=== PATIENT | male | born 1950 | race Asian ===

== ENCOUNTER 2024-03-26 10:22 | Outpatient (REF) | payer OTHER, SELFPAY | END 2024-03-26 10:23 | disposition home or self-care (01) | LOC: HO.SH 10:22 | PROVIDERS: Visit Provider Physician Assistant Medical | DX: Z01.118 Encounter for examination of ears and hearing with other abnormal findings (principal); H90.3 Sensorineural hearing loss, bilateral | CPT/HCPCS: 92553; 92555 ==

== ENCOUNTER 2025-04-08 10:09 | Outpatient (AMB) | payer OTHER, SELFPAY ==
--- NOTE | 2025-04-08 10:34 | A.OFFPC_ITS ---
Vital Signs 04/08/25 10:48 Height 5 ft 1 in Weight 130 lb 8 oz BMI 24.7 BP 120/70 Blood Pressure Location Lt brachial Position Sitting Respiration 14 Pulse 91 Pulse Source Pulse Oximeter Temp 97.8 F Temp Source Oral Pulse Oximetry (%) 95 Oxygen Delivery Method Room Air Intake Visit Reasons: TIN POURER // Requesting a PE Intake Note: patient schedule to establish care with pcp Parquet Floor Layer'S Helper Required: Yes Parquet Floor Layer'S Helper Language: [facility] Parquet Floor Layer'S Helper Name: [id number] Information Interpreted: clinical only Clinical Laboratory Assistant: Present Accompanied by: Son Allergies No Known Allergies Allergy (Verified 04/08/25 10:39) Medication List - Last Reconciled 04/08/25 by Burke Gipson MD clobetasol 0.05% topical BID PRN cyanocobalamin (vitamin B-12) (Vitamin B-12) 1,000 mcg PO DAILY docusate sodium 100 mg PO BID PRN empagliflozin (Jardiance) 25 mg PO DAILY gabapentin 100 mg PO BID glipizide ER 10 mg PO BID lisinopril 5 mg PO DAILY metformin 1,000 mg PO BID omega 4-mdw-vkg-fish oil 60-90-500 mg 1 cap PO DAILY omeprazole 20 mg PO DAILY sertraline 50 mg PO DAILY simvastatin 20 mg PO BEDTIME Tobacco use date assessed: 04/08/25 Fall risk assessment: No Falls in past year Last assessed Fall Risk: 04/08/25 Dental Screening Dental Screen Date: 04/08/25 Did you have a dental visit in the last 12 months?: No Did you have a dental problem in the last 6 months where you did not have access to dental care?: No Was dental information given to patient?: Patient declined HPI TIN POURER // Requesting a PE HPI Details New Patient? ?? Prior PCP:? Last office visit/CPE:? [facility] in [place] Acute issue(s):? ?? PMHx:? Diabetes with Neuropathy, HTN, HLD, Depression. SurgHx:?None SocHx: Nonsmoker, No EtOH. [--- HPI Comments History of Present Illness Details Documentation assistance for Burke Gipson MD, was provided by Trev Alexandra,? Guide on 04/08/2025 at 11:03 AM EST. I, Dr. Gipson, have read, observed, and verified documentation. [facility] Social History (Updated 04/08/25 @ 10:45 by [facility] Mcdonough [facility] Housing: Apartment Patient Tobacco Use Status: Never used Tobacco e-Cigarette/Vaping Use: Never Used service: No Current occupational status: unemployed Cognitive needs: No Hearing needs: No Vision needs: No Questionnaire PHQ-9 Over the last 2 weeks, how often have you been bothered by any of the following problems? 1. Little interest or pleasure in doing things: not at all 2. Feeling down, depressed, or hopeless: not at all 3. Trouble falling or staying asleep, or sleeping too much: not at all 4. Feeling tired or having little energy: not at all 5. Poor appetite or overeating: not at all 6. Feeling bad about yourself - or that you are a failure or have let yourself or your family down: not at all 7. Trouble concentrating on things, such as reading the newspaper or watching television: not at all 8. Moving or speaking so slowly that other people could have noticed. Or the opposite - being so fidgety or restless that you have been moving around a lot more than usual: not at all 9. Thoughts that you would be better off or of hurting yourself in some wa y: not at all Total score: 0 Depression Screening Interpretation: Negative Depression Screening Done: Yes 18916 - PHQ-9 Billing: Yes Source: Developed by Drs. Jairon Brooks, Ana Bolnaos, Joe Bradley and colleagues, with an educational caroline from [employer]. Thrive Questionnaire Date Thrive assessed: 04/08/25 I am a: Patient What is your living situation today?: I have a steady place to live Within the past 12 months, did the food you bought not last and you didn't have the money to get more?: Never true Within the past 12 months, did you worry whether your food would run out before you got money to buy more?: Never true Do you have trouble paying for medicines?: No Do you have trouble getting transportation to medical appointments?: No Do you have trouble paying your heating and electricity bill?: No Do you have trouble taking care of your child, family member or friend?: No Do you have trouble with day-to-day activities such as bathing, preparing meals, shopping, managing finances, etc.?: No Are you currently unemployed and looking for a job?: No Are you interested in more education?: No Please select the resources that you would like help with: None Currently or been in a relationship where the following occur: No concerns reported THRIVE Score: 0 AUDIT C Alcohol Use Questionnaire (AUDIT-C) 1. How often do you have a drink containing alcohol?: Never 3. How often do you have six or more drinks on one occasion?: Never Total Score: 0 Score Reviewed/Action Taken: Yes BLACK-7 AMB Questionnaire BLACK-7 Date BLACK - 7 assessed: 04/08/25 Feeling nervous, anxious, or on edge: 0 = Not at all Not being able to stop or control worryin = Not at all Worrying too much about different things: 0 = Not at all Trouble relaxin = Not at all Being so restless that it is hard to sit still: 0 = Not at all Becoming easily annoyed or irritable: 0 = Not at all Feeling afraid as if something awful might happen: 0 = Not at all Total BLACK-7 score (0-4 normal; 5-9 mild; 10-14 moderate; 15-21 severe): 0 Source: Developed by Drs. Jairon Brooks, Ana Bolanos, Joe Bradley and colleagues, with an educational caroline from [employer]. BLACK-7 Assessment Billing BLACK-7 Assessment Tool: BLACK-7 Assessment 04125 Review of Systems Const Denies chills, Denies fatigue, Denies fever(s), Denies headache(s) and Denies weakness ENT Denies dizziness and Denies headache(s) Card Denies chest pain, Denies lightheadedness, Denies dyspnea and Denies other (Palpitations) Resp Denies cough, Denies dyspnea, Denies wheezing and Denies other ( shortness of breath) Musc Denies numbness and Denies tingling Neuro Denies dizziness, Denies headache(s), Denies numbness, Denies tingling, Denies paresthesias and Denies weakness Psych Denies anxiety and Denies depression Endo Denies fatigue Aller/Immun Denies wheezing Physical exam (Primary Care) Vital Signs: Last Vital Signs Temp 97.8 F 04/08/25 10:48 Pulse 91 04/08/25 10:48 Resp 14 04/08/25 10:48 BP 120/70 04/08/25 10:48 Pulse Ox 95 04/08/25 10:48 Oxygen Delivery Method Room Air 04/08/25 10:48 BMI result Body Mass Index 24.7 Tobacco/Smoking Status: Tobacco use Status Tobacco use date assessed 04/08/25 04/08/25 10:43 Patient Tobacco Use Status Never used Tobacco 04/08/25 10:45 e-Cigarette/Vaping Use Never Used 04/08/25 10:45 PHQ-9: PHQ-9 Score PHQ-9: Total score 0 04/08/25 10:51 Depression Screening Interpretation: Negative Thrive Assessment: Date of Thrive Assessment Date Thrive assessed 04/08/25 04/08/25 10:51 Currently or been in a relationship where the following occur: No concerns reported Const General: no acute distress and well developed Nutritional Appearance: well nourished Orientation/consciousness: patient oriented x3 HENMT Head: Yes normocephalic and Yes atraumatic Eyes General: appearance normal, both eyes and all related structures Pupils: Equal, round and reactive pupils present EOM: EOMs intact bilaterally Resp Effort & Inspection: normal respiratory effort Auscultation: clear to auscultation bilaterally Cardio Rate: regular rate Rhythm: regular rhythm Heart sounds: S1 normal heart sound present, S2 normal heart sound present, no gallops, no murmurs and no rubs Neuro General: patient oriented x3 and gait normal Cranial nerves: Yes Equal, round and reactive pupils present Psych Affect: normal affect Coding Level of Care Code New Pt Level 3 (48490) Diagnoses Diabetes mellitus with neuropathy E11.40 Hyperlipidemia E78.5 Hypertension I10 Laboratory exam ordered as part of routine general medical examination Z00.00 Depression F32.A Additional Codes BLACK-7 Assessment Billing - BLACK-7 Assessment Tool: BLACK-7 Assessment 65488 ([id number]) PHQ-9 - 01687 - PHQ-9 Billing: Yes ([id number]) Assessment & Plan Assessment & Plan (1) Diabetes mellitus with neuropathy: Code(s): E11.40 - Type 2 diabetes mellitus with diabetic neuropathy, unspecified Category: Medical Plan: Currently taking glipizide, metformin and Jardiance. Will check labs including fasting blood sugar and A1c (2) Hyperlipidemia: Code(s): E78.5 - Hyperlipidemia, unspecified Category: Medical Plan: Patient is taking simvastatin Will check lipids (3) Hypertension: Code(s): I10 - Essential (primary) hypertension Category: Medical Plan: Patient is taking lisinopril. Blood pressure 120/70 is good control. Goal is less than 140/90 Continue current medication (4) Laboratory exam ordered as part of routine general medical examination: Code(s): Z00.00 - Encounter for general adult medical examination without abnormal findings Category: Medical Plan: Check labs (5) Depression: Code(s): F32.A - Depression, unspecified Category: Medical Plan: Patient takes sertraline Stable Will continue current medication Orders: Orders Hemoglobin A1c Today R73.01 - Impaired fasting glucose Comprehensive [place]. Panel Fast Today Z00.00 - Encounter for general adult medical examination without abnormal findings Prostate Specific Antigen Scr Today Z12.5 - Encounter for screening for malignant neoplasm of prostate TSH reflex Free T4 Today Z00.00 - Encounter for general adult medical examination without abnormal findings UA CC w/rflx Micro + Cult Today Z00.00 - Encounter for general adult medical examination without abnormal findings Complete Blood Count Auto Diff Today Z00.00 - Encounter for general adult med ical examination without abnormal findings Microalbumin, Random (w Creat) Today I10 - Essential (primary) hypertension Lipid Panel Today Z00.00 - Encounter for general adult medical examination without abnormal findings Vitamin B12 and Folate Today E53.8 - Deficiency of other specified B group vitamins
--- OUTSIDE RECORDS SUMMARY | 2025-04-08 10:38 | XMS_ITS | Clinical Summary ---
Author Organization Patient Business Ser [facility] Address [address] [place] [address] Care Team Providers Care Chief Engineer Waterworks Name Role Phone Joyce Naranjo MD Primary Care Provider Allergies No known active allergies Medications hydrocortisone 1 % topical cream APPLY TOPICALLY TO NAILS AND SKIN DAILY 05/28/20 24 Active clotrimazole-betam ethasone (LOTRISONE) 1-0.05 % cream APPLY SPARINGLY TO EXTERNAL AFFECTED AREA 2 TIMES DAILY FOR 7-10 DAYS. 04/30/20 24 Active acetaminophen (TYLENOL) 500 mg tablet TAKE 2 TABLETS BY MOUTH 3 TIMES A DAY NEEDED FOR BREAKTHROUGH PAIN 05/15/20 24 Active clotrimazole (LOTRIMIN) 1 % cream APPLY TO SKIN AND TOENAILS DAILY FOR 12 WEEKS 05/27/20 24 Active ofloxacin (FLOXIN) 0.3 % otic solution Place 5 Drops into the left ear daily for 10 days. Tilt head so ear to be treated points towards the ceiling. 07/25/20 22 Active inhalat.spacing dev,large mask spacer For use with inhalers 03/03/20 24 Active blood-glucose meter misc 1 Device by Does not apply route daily. Dx e11.65 03/07/20 23 Active ONETOUCH DELICA LANCETS MISC 1 Device by Does not apply route daily. Use to test sugar daily dxe11.65 03/07/20 23 Active albuterol HFA (PROAIR HFA ; PROVENTIL HFA ; VENTOLIN HFA) 90 mcg/actuation inhaler Inhale 2 Puffs into the lungs 4 times daily as needed for Cough or Wheezing. 12/23/19 18 Active sertraline (ZOLOFT) 50 mg tablet Take 1 tablet (50 mg total) by mouth 1 (one) time each day. 90 tablet 1 12/14/19 25 Active omeprazole (PriLOSEC) [address] capsule Take 1 capsule (20 mg total) by mouth 1 (one) time each day. 90 capsule 1 12/14/19 25 Active omega-3 (FISH OIL) 60-90-500 mg capsule Take 1 capsule (500 mg total) by mouth 1 (one) time each day. 90 capsule 1 12/14/19 25 Active metFORMIN (GLUCOPHAGE) 1,000 mg tablet Take 1 tablet (1,000 mg total) by mouth 2 (two) times a day with meals. 180 tablet 1 12/14/19 25 Active lisinopriL (PRINIVIL,ZESTRIL) 5 mg tablet Take 1 tablet (5 mg total) by mouth 1 (one) time each day. 90 tablet 1 12/14/19 25 Active glipiZIDE (GLUCOTROL XL) 10 mg 24 hr tabletIndications: Diabetes mellitus type 2 with neurological manifestations (CMS/HCC V24, CMS/HCC V28) Take 1 tablet (10 mg total) by mouth 2 (two) times a day. 180 tablet 1 12/14/19 25 Active gabapentin (NEURONTIN) 100 mg capsule Take 1 capsule (100 mg total) by mouth 2 (two) times a day. 180 capsule 1 12/14/19 25 Active docusate sodium (COLACE) 100 mg capsule Take 1 capsule (100 mg total) by mouth 2 (two) times a day if needed for constipation. for constipation 180 capsule 1 12/14/19 25 Active cyanocobalamin (VITAMIN B-12) 1,000 mcg tablet Take 1 tablet (1,000 mcg total) by mouth 1 (one) time each day. 90 tablet 1 12/14/19 25 Active clobetasoL (TEMOVATE) 0.05 % cream Apply to hands and feet 2 times daily as needed for rash 30 g 12/14/19 25 Active simvastatin (ZOCOR) 20 mg tablet Take 1 tablet (20 mg total) by mouth at bedtime. 90 tablet 03/22/20 25 Active simvastatin (ZOCOR) 20 mg tablet Take 1 tablet (20 mg total) by mouth at bedtime. 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 Overview (06/30/2024): S/p treatment for 9 months - 2014 Lung nodule 03/09/2018 Overview (06/30/2024): 03/16- rpt in 09/15- stable, rpt in one year 09/16-stable Thyroid nodule 03/09/2018 Overview (06/30/2024): 03/16- incedental on CT scan, sono pending, tsh pending 06/16- sono never completed, letter sent 09/2019- biopsy- benign Diabetes mellitus type 2 wit h neurological manifestations ([facility] V24, [facility] V28) 06/10/2017 GERD (gastroesophageal reflux disease) 7 Hypercholesteremia 06/10/2017 Immunizations Name Administration Dates Next Due Hepatitis B Pediatric (Enger ix B; Recombivax HB) to less than 20 yo 10/08/2013,08/13/2013 Influenza Quadravalent, MDCK , 0.5ml, with preservative (Flucelvax) 6mo and older 06/19/2017,12/25/2016 Influenza trivalent, 0.5mL ( Fluad) 65yo and older 08/31/2024 Influenza trivalent, 0.5mL ( Fluzone High-dose) 65yo and older 07/04/2023,06/20/2020,10/15/2019,06/10 Influenza trivalent, with pr eservative (Fluzone; Afluria) 6mo and older 08/07/2015 MMR, measles mumps and rubel la Live (Priorix; M-M-R II) 12mo and older 04/05/2014,02/25/2014 Moderna SARS-CoV-2 COVID-19, mRNA, LNP-S, preservative free 12/11/2021,01/31/2021 Pneumococcal conjugate 13 va lent (Prevnar 13, PCV13) 2mo and older 03/17/2018,02/17/2017 Pneumococcal polysaccharide 23 valent (Pneumovax 23) 2yo and older 11/10/2015 Td Tetanus diptheria (Tdvax) 7yo and older 03/17/2018 Tdap Tetanus diptheria acell ular pertussis (Boostrix; Adacel) 7yo and older 02/25/2014 Surgical History Surgery Date Site/Laterality Comments OTHER SURGICAL HISTORY PROCEDURE: DENIES PREVIOUS SURGERY Medical History Medical History Date Comments DM (diabetes mellitus screen) DX :DM (diabetes mellitus screen) Sleep apnea DX:Sleep apnea Heart burn DX:Heart burn B12 deficiency 07/20/2018 DX:B12 deficienc y Esophageal reflux DX:Esophageal reflux Diabetes mellitus type 2, co ntrolled, with complications (CMS/HCC V24, CMS/HCC V28) DX:Diabetes mellitus type 2, controlled, with complications ([facility]) Disorder of thyroid DX:Disorder of thyroid Hypertension 09/18/2020 DX:Hypertension Family History Medical History Relation Name Comments Diabetes Mother Relation Name Status Comments Mother Social History Tobacco Use Types Packs/Day Years Used Date Smoking Tobacco: Never Smokeless Tobacco: Former Alcohol Use Standard Drinks/Week Comments No 0 (1 standard drink = 0.6 oz pur e alcohol) Sex and Gender Information Value Date Recorded Sex Assigned at Not on file Legal Sex Male 8:11 PM EDT Gender Identity Not on file Sexual Orientation Not on file Obstetrics History Last Filed Vital Signs Vital Sign Reading Time Taken Comments Blood Pressure 128/78 05/24/2024 4:05 PM EDT Pulse 69 05/24/2024 4:05 PM EDT Temperature - - Respiratory Rate - - Oxygen Saturation - - Inhaled Oxygen Concentration - - Weight 59.4 kg (131 lb) 05/27/2024 2:01 PM EDT Height 149.9 cm (4' 11 ) 05/24/2024 4:05 PM EDT Body Mass Index 26.46 05/24/2024 4:05 PM EDT Plan of Treatment Upcoming Encounters Date Type Department Care Team (Late st Contact Info) Description 05/12/2025 10:00 AM EDT Office Visit Internal Medicine - [facility] [address] [facility] [place] [phone] Joyce Naranjo MD [address] [place], [place] Health Maintenance Due Date Last Done Comments Diabetes: Annual Retina Eye Exam 1959 Zoster Vaccines (1 of 2) 1999 Depression Screening 01/26/2021 Falls Risk Assessment 01/26/2021 Medicare Annual Wellness Visit 01/26/2021 Social Influencers of Health Screening 01/26/2021 COVID-19 Vaccine ( season) 2024 12/11/2021, 01/31/2021, 01/03/2021 RSV Immunization Adult Patients (1 - 1-dose 75+ series) 2024 Colorectal Cancer Screening: Colonoscopy 10/19/2024 10/19/2019 Diabetes: Blood Sugar Control Test (HGBA1C) 10/31/2024 04/30/2024, 04/30/2024 Diabetes: Annual Foot Exam 11/04/2024 11/04/2023 Diabetes: Annual Urine Albumin-Creatinine Ratio (uACR) 04/30/2025 04/30/2024 Diabetes: Annual GFR (Glomerular Filtration Rate) 04/30/2025 04/30/2024, 04/30/2024 Hypertension/CHF/CAD Annual BMP Blood Test 04/30/2025 04/30/2024, 04/30/2024 Influenza Vaccine (#1) 2025 , 07/04/2023, 06/20/2020, Additional history exists DTaP,Tdap,and Td Vaccines (3 - Td or Tdap) 03/17/2028 03/17/2018, 02/25/2014 Cholesterol Screening (Lipid Panel) 11/04/2028 11/04/2023 Hepatitis B Vaccines Aged Out 10/08/2013, 08/13/20 13 No longer eligible based on patient's age to complete this topic MMR Vaccines Aged Out 04/05/2014, 02/25/2014 No lo nger eligible based on patient's age to complete this topic Pneumococcal Vaccine: 50+ Years Completed 03/17/2018, 02/17/2017, 11/10/2015 Hepatitis C Screening Completed 07/17/2018 HIB Vaccines Aged Out No longer eligi ble based on patient's age to complete this topic HPV Vaccines Aged Out No longer eligi ble based on patient's age to complete this topic Hepatitis A Vaccines Aged Out No long er eligible based on patient's age to complete this topic IPV Vaccines Aged Out No longer eligi ble based on patient's age to complete this topic Meningococcal ACWY Vaccine Aged Out N o longer eligible based on patient's age to complete this topic Meningococcal B Vaccine Aged Out No l onger eligible based on patient's age to complete this topic RSV Immunization Patients Under 20 months Aged Out No longer eligible based on patient's age to complete this topic Varicella Vaccines Aged Out No longer eligible based on patient's age to complete this topic Procedures Procedure Name Priority Date/Time Associated Diagnosis Comments URINE ALBUMIN CREATININE RATIO Routine 04/30/2024 ANNUAL BMP BLOOD TEST Routine 04/30/2024 HEMOGLOBIN A1C Routine 04/30/2024 LIPID PANEL Routine 11/04/2023 DIABETES FOOT EXAM Routine 11/04/2023 COLONOSCOPY Routine 10/19/2019 HEPATITIS C SCREENING Routine 07/17/2018 from Last 3 Months or Most Recently Relevant to Health Maintenance Results * Urine Albumin Creatinine Ratio (04/30/2024) Pathologist [facility] Urine Albumin Creatinine Ratio abstracted Historical Provider HEALTH MAINTENANCE Final Result * Annual BMP Blood Test (04/30/2024) Pathologist [facility] Annual BMP Blood Test abstracted Historical Provider HEALTH MAINTENANCE Final Result * (ABNORMAL) Hemoglobin A1c (04/30/2024) Pathologist [facility] Hemoglobin A1C 8.5(A) <=6.5 % Blood Venous blood specimen / Unknown [facility] Provider LAB BLOOD ORDERABLES Kathryn l Result * Diabetes Foot Exam (11/04/2023) Pathologist [facility] Diabetes: Annual Foot Exam abstracted [facility] Provider HEALTH MAINTENANCE Final Result * (ABNORMAL) Lipid panel (11/04/2023) [facility] LDL/HDL Ratio 4 Triglycerides 298(A) 0 - 150 mg/dL Cholesterol 153 0 - 200 mg/dL HDL 41 >=40 mg/dL LDL Cholesterol 53 0 - 100 mg/dL Blood Venous blood specimen / Unknown Result [facility] Provider LAB BLOOD ORDERABLES Kathryn l Result * Colonoscopy (10/19/2019) Pathologist [facility] Colonoscopy no interpretation , abstracted Anatomical Region Laterality Modality Other [facility] Provider HEALTH MAINTENANCE Final Result * Hepatitis C Screening (07/17/2018) Pathologist [facility] Hepatitis C Screening abstracted [facility] Provider HEALTH MAINTENANCE Final Result from Last 3 Months or Most Recently Relevant to Health Maintenance Insurance MEDICAID - [place] [facility] [employer] Care Teams Chief Engineer Waterworks Relationship Specialty Start Date End Date Joyce Naranjo MD [address] [facility] [place] [phone] PCP - General Internal Medicine 03/22/25
--- OUTSIDE RECORDS SUMMARY | 2025-04-08 10:38 | XMS_ITS | Clinical Summary ---
Author Organization [facility] Address [address] [place] [address] Care Team Providers Care Central Supply Technician Supervisor Name Role Phone Shreyas Pedraza PA-C Primary Care Provider + [phone] Source Comments PLEASE NOTE, if this patient is a minor, it may be UNLAWFUL to discuss sensitive information that is contained in these records (such as FAMILY PLANNING, MENTAL HEALTH or SUBSTANCE ABUSE) with the minor patient's parent or other person without the patient's specific authorization.[facility] Allergies No known active allergies Medications lancetsIndicati ons:Type 2 diabetes mellitus with complication, without long-term current use of insulin (CMS & HHS-HCC) Contour next ez lancets Use once daily as Directed- fasting on mon,wed,fri and post prandial on fri,thur,sat 100 Each 11 6 Active acetaminophen (TYLENOL) 500 mg tabletIndicatio ns:Chronic bilateral low back pain without sciatica Take 1 Tab by mouth every 6 (six) hours as needed for pain 60 Tab 2 7 Active omeprazole (PRILOSEC) [address] capsuleIndicati ons:Gastritis without bleeding, unspecified chronicity, unspecified gastritis type Take 1 Cap by mouth every morning before breakfast Do not crush or chew. 30 Cap 3 7 Active metFORMIN (GLUCOPHAGE) 1,000 mg tabletIndicatio ns:Uncontrolled type 2 diabetes mellitus without complication, without long-term current use of insulin Take 1 Tab by mouth 2 (two) times daily with a meal 60 Tab 5 8 Active simvastatin (ZOCOR) 20 mg tabletIndicatio ns:Dyslipidemia Take 1 Tab by mouth nightly at bedtime 30 Tab 3 8 Active blood sugar diagnostic (FREESTYLE LITE STRIPS) stripsIndicatio ns:Uncontrolled type 2 diabetes mellitus without complication, without long-term current use of insulin SMBG once daily according to oral medication schedule and PRN with symptoms of hypoglycemia 50 Each 11 8 Active glimepiride (AMARYL) 1 mg tabletIndicatio ns:Uncontrolled type 2 diabetes mellitus without complication, without long-term current use of insulin TAKE 1 TABLET BY MOUTH ONCE DAILY WITH BREAKFAST 30 Tab 2 8 Active gabapentin (NEURONTIN) 100 mg capsuleIndicati ons:Neuropathy of both feet TAKE 1 CAP BY MOUTH NIGHTLY AT BEDTIME 30 Cap 2 9 Active Active Problems Problem Noted Date Diagnosed Date Neuropathy of both feet 02/17/2017 Stiffness of left shoulder joint 05/02/2016 H/O echocardiogram 05/02/2016 Overview (05/02/2016): ECHO(07/07/14, [facility]): Summary 1. The left ventricle size is small. There is borderline concentric left ventricular hypertrophy.Normal LV systolic function. 2. Ejection fraction is 55-65%. There are no regional wall motion abnormalities. 3. Grade I, mild diastolic dysfunction with impaired LV relaxation. 4. The left atrium is mild to moderately dilated. 5. The right ventricle is normal in size and function. Impressions No evidence for cardiomegaly or significant valvular disorder. Uncontrolled diabetes mellitus type 2 without co mplications 11/10/2015 Dyslipidemia 11/10/2015 PPD positive 08/07/2015 Colon polyp 07/10/2015 Overview (02/17/2017): 05/31/15- polyp By colonoscopy at [facility] [place], biopsy Showed Benign Adenomatous Polyp ( Precancerous polyp found ) Rec next colonoscopy in FIVE YEARS Abnormal liver function test 01/26/2015 Gastritis 05/25/2014 Shoulder pain, right 05/25/2014 Overview (07/08/2014): Shoulder rt- normal, 05/25/14. Tobacco chew use 05/25/2014 Screening-pulmonary TB 02/25/2014 Overview (01/03/2015): cxr- 08/13/13 shows right medil upper lung ? infitrations Bilateral apical cappings Increased pulmonary vascular markings - borderline cardiac side with lv emphasis, ctr-50% ? Cardio thoracic ratio - prominent aortic knuckle. =sputum from ,,5 - neg smear and cx. No treatment is given -06/07/14- latent tb on inh x 9 months. cxr-06/07 14- normal. Lipoma of skin of abdomen 02/25/2014 Cyst of left kidney 02/25/2014 Overview (02/25/2014): Left renal cortical cyst measuring 2.6 x 2.3 cm at mid polar region, single. Hearing impaired 02/25/2014 Overview (06/30/2017): Seen by ENT at [facility], b/l SNHL. Refer to doc for more accurate testing Vision problem 02/25/2014 Resolved Problems Problem Noted Date Diagnosed Date Resolved Date Routine general medical exam ination at a health care facility 08/07/2015 05/02/2016 Hyperglycemia 01/26/2015 11/11/2015 Dental caries limited to enamel 02/27/2014 11/11/2015 Cardiomegaly 02/25/2014 05/02/2016 Refugee health examination 02/25/2014 0 05/02/2016 Immunizations Immunization Administration Dates Next Due Flu, Preservative Free 06/19/2017,12/25/2016 Hep B, Adult/Adol (ATHVKGT-T-QJGXZ/RECOMBIVAX-ADULT) 04/05/2014,10/08/2013,08/13/2013 INFLUENZA, SEASONAL, INJECTABLE 08/07/2015,02/25 MMR (MMR II/Priorix) 04/05/2014,02/25/2014 Moderna COVID-19 Vaccine, re d cap blue label, 12+ Primary Series 01/31/2021,01/03/2021 PNEUMOCOCCAL CONJUGATE PCV 13 02/17/2017 PNEUMOCOCCAL POLYSACCHARIDE PPV23 (Pneumovax 23) 11/10/2015 TDAP 02/25/2014 Td (adult),2 Lf tetanus toxo id (TDVAX), preservative free 08/13/2013 Social History Tobacco Use Types Packs/Day Years Used Date Smoking Tobacco: Never Smokeless Tobacco: Former Chew Tobacco Cessation:Counseling Given: No Alcohol Use Standard Drinks/Week Comments No 0 (1 standard drink = 0.6 oz pur e alcohol) Social Connections Answer Date Recorded Social Connections and Isolation 0 05/22/2019 Financial Resource Strain Answer Date R ecorded Financial Resource Strain 0 2018 Stress Answer Date Recorded Stress 0 05/22/2019 Physical Activity Answer Date Recorded Physical Activity 0 05/22/2019 Food Insecurity Answer Date Recorded Food 0 05/22/2019 Transportation Needs Answer Date Record ed Transportation 0 05/22/2019 Housing Stability Answer Date Recorded Housing 0 05/22/2019 Safety and Environment Answer Date Henrik rded Safety 0 05/22/2019 Utilities Answer Date Recorded Utilities 0 05/22/2019 Employment Answer Date Recorded Employment 0 05/22/2019 Sex and Gender Information Value Date Recorded Sex Assigned at Not on file Legal Sex Male 1:56 PM PDT Gender Identity Not on file Sexual Orientation Not on file Occupation Industry Job Start Date Job End Date unemployed Not on file Not on file Not on file Last Filed Vital Signs Vital Sign Reading Time Taken Comments Blood Pressure 130/90 06/19/2017 10:33 AM EDT Pulse 76 06/19/2017 10:33 AM EDT Temperature 37 C (98.6 F) 06/19/2017 10:33 AM EDT Respiratory Rate 20 06/19/2017 10:33 AM EDT Oxygen Saturation 95% 05/15/2016 4:15 PM EDT RA Inhaled Oxygen Concentration - - Weight 59.9 kg (132 lb) 06/19/2017 10:33 AM EDT Height 147.3 cm (4' 10 ) 02/17/2017 9:04 AM EDT Body Mass Index 27.59 02/17/2017 9:04 AM EDT Plan of Treatment Health Maintenance Due Date Last Done Comments Dental Examination 1950 Hepatitis C Screening 1950 Medicare Annual Wellness Visit 1967 CT Colonography 1994 Colonoscopy 1994 Fecal DNA 1994 Flexible Sigmoidoscopy 1994 Imm-Zoster, Recombinant (1 of 2) 1999 Falls Prevention 2014 Tobacco Cessation Counseling (#1) 05/25/2015 014 Tobacco Screening 06/08/2015 06/08/2014 Colorectal Cancer Screening 05/31/2016 FIT/gFOBT 05/31/2016 05/31/2015 (Zulema davidson by Outside Provider) Hypertension Screening (#1) 06/19/2018 Lipid Screening 10/18/2021 10/18/2020, 05/30, 04/04/2017, Additional history exists Uub-CQVVS-90 (3 - 2023- season) 2024 021, 01/03/2021 Imm-RSV (adult) (1 - 1-dose 75+ series) 2024 Alcohol and Drug Screen 09/29/2024 02/17/2017 Depression Annual Screen 09/29/2024 Imm-Influenza (#1) 2025 06/20/2020, 0 10/15/2019, 06/19/2017, Additional history exists Imm-DTaP/Tdap/Td (3 - Td or Tdap) 03/17/2028 03/17/2018, 02/25/2014, 08/13/2013 Imm-Pneumococcal 50+ Completed 03/17/2018, 02/17/2017, 11/10/2015 Procedures Procedure Name Priority Date/Time Associated Diagnosis Comments LIPID PANEL Routine 04/04/2017 10:10 AM EDT Dyslipidemia from Last 3 Months or Most Recently Relevant to Health Maintenance Results * (ABNORMAL) LIPID PANEL (04/04/2017 10:10 AM EDT) CHOLESTEROL 158 0 - 200 mg/dL [facility] TRIGLYCERIDES 198(H) 0 - 150 mg/dL [facility] HDL CHOLESTEROL 41 >40 mg/dL [facility] LDL CALCULATED 78 0 - 100 mg/dL [facility] TC-HDLC RATIO 3.9 0 - 4.4 mg/dL [facility] Blood specimen (specimen) Blood / Unknown 04/04/2017 10:10 AM EDT 04/04/2017 10:33 AM EDT Narrative [facility] - 04/04/2017 1:19 PM EDT [place] [address] [place] [address] PT ID [id number] ORD# [id number] us Eveline Kovacs MD LAB - BLOOD DRAW Edited Resu lt - Final [facility] [address] [place] [address], from Last 3 Months or Most Recently Relevant to Health Maintenance Insurance [facility] [place] [address] Care Teams Central Supply Technician Supervisor Relationship Specialty Start Date End Date Shreyas Pedraza PA-C [address] [place] [address] PCP - General FAMILY MEDICINE, [place] 01/31/22
[2025-04-08 10:48] VITALS: BP 120/70; PULSE 91; RESP 14; TEMP 36.6; O2SAT 95; BMI 24.7
== END 2025-04-08 11:25 | disposition home or self-care (01) ==
LOC: HO.HMCFM 10:09
PROVIDERS: PCP Family Medicine; Visit Provider Family Medicine
DX: E11.40 Type 2 diabetes mellitus with diabetic neuropathy, unspecified (principal); E78.5 Hyperlipidemia, unspecified; I10 Essential (primary) hypertension; Z00.00 Encounter for general adult medical examination without abnormal findings; F32.A Depression, unspecified

== ENCOUNTER → 2025-04-08 10:09 | Outpatient (BNVA) | payer OTHER, SELFPAY | PROVIDERS: PCP Family Medicine; Visit Provider Family Medicine | DX: Z00.00 Encounter for general adult medical examination without abnormal findings (principal); E11.40 Type 2 diabetes mellitus with diabetic neuropathy, unspecified; E78.5 Hyperlipidemia, unspecified; I10 Essential (primary) hypertension; F32.A Depression, unspecified; E53.8 Deficiency of other specified B group vitamins | CPT/HCPCS: 96127; 99202 ==

== ENCOUNTER 2025-04-08 11:31 | Outpatient (REF) | payer OTHER, SELFPAY ==
[2025-04-08 14:48] LABS: Appearance Urine Clear; Glucose Urine UA >=1000 mg/dL (Negative); PH 6.0 (5.0-9.0); Specific Gravity - Urine 1.015 (1.005-1.025); UMIC TRIGGER UACC YES
[2025-04-08 14:51] LABS: MANUAL DIFF FLAG NO
[2025-04-08 14:54] LABS: Hematocrit 38.9 % (42.0-52.0); Hemoglobin 13.5 g/dl (14.0-18.0); Imm Gran Abs Auto 0.06 X10*3/uL (0.00-0.03); Imm Gran Pct Auto 0.6 % (0.0-0.4); Lymphocytes Absolute Auto 2.2 X10*3/uL (1.2-4.9); Mean Corpuscular HGB Conc 34.7 g/dl (31.0-36.0); Mean Corpuscular Hemoglobin 29.6 pg (27.0-33.0); Mean Corpuscular Volume 85.3 fL (80.0-98.0); NRBC Abs Auto 0.000 X10*3/uL (0.0-0.012); NRBC Pct Auto 0.0 /100WBC (0.0-0.2); Platelet Count 269 X10*3/uL (160-400); Red Blood Count 4.56 X10*6/uL (4.60-5.80); White Blood Count 9.6 X10*3/uL (4.8-10.8)
[2025-04-08 15:18] LABS: Alanine Aminotransferase 41 U/L (0-40); Albumin Level 4.5 g/dL (3.5-5.0); Alkaline Phosphatase 86 U/L (39-117); Anion Gap 13 (12-20); Aspartate Amino Transferase 33 U/L (5-37); Blood Urea Nitrogen 16 mg/dL (9-16); Calcium 9.6 mg/dL (8.4-10.2); Carbon Dioxide 25 mmol/L (22-29); Chloride 101 mmol/L (96-108); Cholesterol 181 mg/dL (<200); Estimated Glomerular Filt Rate > 60; HDL Cholesterol 42 mg/dL (>40); Potassium 4.9 mmol/L (3.3-5.1); Sodium 134 mmol/L (135-145); Total Protein 8.4 g/dL (6.5-8.0); Triglycerides 226 mg/dL (<150)
[2025-04-08 15:45] LABS: Folate 7.0 ng/mL (> or = 4.0); Vitamin B12 264 pg/mL (200-900)
[2025-04-08 16:02] LABS: Hemoglobin A1C 331.5358 umol/L; Total Hemoglobin (HGBA1C) 3574.9326 umol/L
[2025-04-08 16:30] LABS: Microalbum/Creatinine Ratio Ur 33.1 ug/mg cr (<30)
== END 2025-04-08 11:32 | disposition home or self-care (01) ==
LOC: HO.WFDLDS 11:31
PROVIDERS: Visit Provider Family Medicine
DX: Z00.00 Encounter for general adult medical examination without abnormal findings (principal); R73.01 Impaired fasting glucose; E53.8 Deficiency of other specified B group vitamins; Z12.5 Encounter for screening for malignant neoplasm of prostate; I10 Essential (primary) hypertension
CPT/HCPCS: 36415; 80053; 80061; 81001; 82043; 82570; 82607; 82746; 83036; 84153; 84443; 85025

== ENCOUNTER 2025-06-10 11:04 | Outpatient (AMB) | payer OTHER, SELFPAY ==
--- NOTE | 2025-06-10 11:20 | A.OFFPC_ITS ---
Vital Signs 06/10/25 11:29 Height 5 ft 1 in Weight 132 lb 4 oz BMI 25.0 BP 118/68 Blood Pressure Location Rt brachial Position Sitting Respiration 14 Pulse 94 Pulse Source Pulse Oximeter Temp 98.1 F Temp Source Temporal Artery Scan Pulse Oximetry (%) 94 Oxygen Delivery Method Room Air Intake Visit Reasons: [facility] Intake Note: Pee presents in the office today to establish care. Patient needs refills of his medication. Real Estate Operations Manager Required: Yes Real Estate Operations Manager Name: Jacob King Information Interpreted: non-clinical & clinical Vice President Quality Assurance: Present Accompanied by: Child Allergies No Known Allergies Allergy (Verified 06/10/25 11:26) Medication List - Last Reconciled 06/10/25 by Burke Gipson MD clobetasol 0.05% topical BID PRN cyanocobalamin (vitamin B-12) (Vitamin B-12) 1,000 mcg PO DAILY docusate sodium 100 mg PO BID PRN empagliflozin (Jardiance) 25 mg PO DAILY gabapentin 100 mg PO BID glipizide ER 10 mg PO BID lisinopril 5 mg PO DAILY metformin 1,000 mg PO BID omega 9-gzo-blb-fish oil 60-90-500 mg 1 cap PO DAILY omeprazole 20 mg PO DAILY sertraline 50 mg PO DAILY simvastatin 20 mg PO BEDTIME Tobacco use date assessed: 06/10/25 Fall risk assessment: No Falls in past year Last assessed Fall Risk: 06/10/25 Dental Screening Dental Screen Date: 06/10/25 Did you have a dental visit in the last 12 months?: No Did you have a dental problem in the last 6 months where you did not have access to dental care?: No Was dental information given to patient?: Patient has dentist HPI [facility] HPI Details 74 y/o male presents to /[facility] pital visit for sensation of foreign body. Patient had gone to the emergency department with sensation of foreign body after eating chicken and he had been unable to dislodge this at home with and drinking. Imaging at the emergency department was consistent with a chicken bone EGD was performed and chicken bone was dislodged. It was seen to be caught in region that had an ulceration. Gastrografin contrast was used to look for any perforations and this was negative. He was given Zosyn and IV Protonix. Patient was started on clear liquid diet and monitored. Discharged on Augmentin x7 days and proton pump inhibitor. Imaging also showed incidental thyroid and lung nodule which are already known. Denies any pain while swallowing today. Recent A1c 10.6%. They note pt has not received glipizide and Jardiance. [facility] Social History (Updated 06/10/25 @ 11:29 by Katiuska Little MA) Housing: Apartment Alcohol intake: never Patient Tobacco Use Status: Never used Tobacco e-Cigarette/Vaping Use: Never Used Second Hand Smoke Exposure: No Use of substances other than those prescribed or required for medical reasons: No service: No Current occupational status: unemployed Cognitive needs: No Hearing needs: No Vision needs: No Questionnaire Thrive Questionnaire Date Thrive assessed: 04/08/25 BLACK-7 AMB Questionnaire BLACK-7 Date BLACK - 7 assessed: 04/08/25 Source: Developed by Drs. Jairon Brooks, Ana Bolanos, Joe Bradley and colleagues, with an educational caroline from [employer]. Review of Systems Const Denies chills, Denies fatigue, Denies fever(s), Denies headache(s) and Denies weakness ENT Denies dizziness and Denies headache(s) Card Denies dyspnea Resp Denies cough, Denies dyspnea, Denies wheezing and Denies other (shortness of breath) Musc Denies numbness and Denies tingling Neuro Denies dizziness, Denies headache(s), Denies numbness, Denies tingling and Denies weakness Psych Denies anxiety and Denies depression Endo Denies fatigue Aller/Immun Denies wheezing Physical exam (Primary Care) Vital Signs: Last Vital Signs Temp 98.1 F 06/10/25 11:29 Pulse 94 06/10/25 11:29 Resp 14 06/10/25 11:29 BP 118/68 06/10/25 11:29 Pulse Ox 94 06/10/25 11:29 Oxygen Delivery Method Room Air 06/10/25 11:29 BMI result Body Mass Index 25.0 Tobacco/Smoking Status: Tobacco use Status Tobacco use date assessed 06/10/25 06/10/25 11:33 Patient Tobacco Use Status Never used Tobacco 06/10/25 11:29 e-Cigarette/Vaping Use Never Used 06/10/25 11:29 Thrive Assessment: Date of Thrive Assessment Date Thrive assessed 04/08/25 06/10/25 11:22 Const General: well developed; No acute distress Nutritional Appearance: well nourished Orientation/consciousness: patient oriented x3 HENMT Head: Yes normocephalic and Yes atraumatic Eyes General: appearance normal, both eyes and all related structures Pupils: Equal, round and reactive pupils present EOM: EOMs intact bilaterally Resp Effort & Inspection: normal respiratory effort Neuro General: patient oriented x3 and gait normal Cranial nerves: Yes Equal, round and reactive pupils present Psych Affect: normal affect Coding Level of Care Code Est Pt Level 5 (37263) Diagnoses Foreign body in cervical esophagus T18.108A Thyroid nodule E04.1 Lung nodule R91.1 Diabetes E11.9 Assessment & Plan Assessment & Plan (1) Foreign body in cervical esophagus: Code(s): T18.108A - Unspecified foreign body in esophagus causing other injury, initial encounter Category: Medical Plan: Admission 04/09/2025 Discharge 04/11/2025 Patient had gone to the emergency department with sensation of foreign body after eating chicken and he had been unable to dislodge this at home with and drinking. Imaging at the emergency department was consistent with a chicken bone EGD was performed and chicken bone was dislodged. It was seen to be caught in region that had an ulceration. Gastrografin contrast was used to look for any perforations and this was negative. He was given Zosyn and IV Protonix. Patient was started on clear liquid diet and monitored. Remained hemodyna mically stable and tolerated advancment of diet. Discharged on Augmentin x7 days and proton pump inhibitor. (2) Thyroid nodule: Code(s): E04.1 - Nontoxic single thyroid nodule Category: Medical (3) Lung nodule: Code(s): R91.1 - Solitary pulmonary nodule Category: Medical (4) Diabetes: Code(s): E11.9 - Type 2 diabetes mellitus without complications Category: Medical Plan: Lab work showed A1c at 10.6%. He has been taking metformin and glipizide as prescribed. His son says he is not received Jardiance and is not taking. Will send script for Jardiance and he will continue his other medications as prescribed He has an upcoming appointment in June. Will follow-up on his blood sugars and adjust medication as needed Plan Imaging also showed incidental thyroid and lung nodule which are already known. Thyroid nodule has been biopsied and shown to be benign Lung nodule is being followed Medications: Changed From empagliflozin (Jardiance) 25 mg PO DAILY To empagliflozin (Jardiance) 25 mg PO DAILY 90 tabs 3RF 90 days
[2025-06-10 11:29] VITALS: BP 118/68; PULSE 94; RESP 14; TEMP 36.7; O2SAT 94; BMI 25.0
--- OUTSIDE RECORDS SUMMARY | 2025-06-10 12:55 | XMS_ITS | Clinical Summary ---
Author Organization [facility] Address [address] [place] [address] Care Team Providers Care Marketing Systems Manager Name Role Phone Shreyas Pedraza PA-C Primary Care Provider + [phone] Source Comments PLEASE NOTE, if this patient [...] 05/02/2016 H/O echocardiogram 05/02/2016 Overview (05/02/2016): ECHO(07/07/14, [facility]): Summary 1. The left ventricle size is [...] Overview (02/17/2017): 05/31/15- [place] [facility] [place] Showed Benign Adenomatous Polyp ( Precancerous [...] 02/25/2014 Overview (06/30/2017): Seen by ENT at [facility], b/l SNHL. Refer to doc for more [...] Flu, Preservative Free 06/19/2017,12/25/2016 Hep B, Adult/Adol (IACOJRT-A-ROFXT/RECOMBIVAX-ADULT) 04/05/2014,10/08/2013,08/13/2013 INFLUENZA, SEASONAL, INJECTABLE 08/07/2015,02/25 MMR (MMR [...] 10/18/2021 10/18/2020, 05/30, 04/04/2017, Additional history exists Mgc-QKGNH-02 (3 - 2023- season) 2024 021, 01/03/2021 [...] EDT) CHOLESTEROL 158 0 - 200 mg/dL [facility] TRIGLYCERIDES 198(H) 0 - 150 mg/dL [facility] HDL CHOLESTEROL 41 >40 mg/dL [facility] LDL CALCULATED 78 0 - 100 mg/dL [facility] TC-HDLC RATIO 3.9 0 - 4.4 mg/dL [facility] Blood specimen (specimen) Blood / Unknown 04/04/2017 10:10 AM EDT 04/04/2017 10:33 AM EDT Narrative [facility] - 04/04/2017 1:19 PM EDT [place] [address] [place] [address] PT ID [id number] ORD# [id number] us Eveline Kovacs MD LAB - BLOOD DRAW Edited Resu lt - Final [facility] [address] [place] [address], from Last 3 Months or Most Recently Relevant to Health Maintenance Insurance [facility] Care Teams Marketing Systems Manager Relationship Specialty Start Date End Date Shreyas Pedraza PA-C [address] [place] [address] PCP - General FAMILY MEDICINE, [place] 01/31/22
--- OUTSIDE RECORDS SUMMARY | 2025-06-10 12:55 | XMS_ITS | Clinical Summary ---
Author Organization Patient Business Ser [facility] Address [address] [place] [address] Care Team Providers Care Wastewater Treatment Supervisor Name Role Phone Unavailable Primary Care Provider Unavailabl e Allergies No known active allergies Medications hydrocortisone [...] type 2 with neurological manifestations (CMS/HCC V24, CMS/[facility] V28) Take 1 tablet (10 mg total) [...] at bedtime. 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 (CMS/HCC V24, [facility] V28) 03/09/2019 B12 deficiency 07/20/2018 Positive QuantiFERON-TB [...] mellitus type 2 wit h neurological manifestations ([facility] V24, [facility] V28) 06/10/2017 GERD (gastroesophageal reflux disease) 7 [...] mellitus type 2, co ntrolled, with complications ([facility]/HCC V24, [facility]/HCC V28) DX:Diabetes mellitus type 2, controlled, with complications ([facility]) Disorder of thyroid DX:Disorder of thyroid Hypertension [...] 05/24/2024 4:05 PM EDT Plan of Treatment Health Maintenance Due Date Last Done Comments Diabetes: Annual Retina Eye Exam 1959 Zoster Vaccines (1 of 2) 1999 Abdominal Aortic Aneurysm (AAA) Screen 01/26/2021 Falls Risk Assessment 01/26/2021 Medicare Annual Wellness Visit 01/26/2021 Social Influencers of Health Screening 01/26/2021 RSV Immunization Adult Patients (1 - 1-dose 75+ series) 2024 Depression Screening 09/29/2024 Colorectal Cancer Screening: Colonoscopy 10/19/2024 10/19/2019 Diabetes: Blood Sugar Control Test (HGBA1C) 10/31/2024 04/30/2024, 04/30/2024 Diabetes: Annual Foot Exam 11/04/2024 11/04/2023 Diabetes: Annual Urine Albumin-Creatinine Ratio (uACR) 04/30/2025 04/30/2024 Diabetes: Annual GFR (Glomerular Filtration Rate) 04/30/2025 04/30/2024, 04/30/2024 Hypertension/CHF/CAD Annual BMP Blood Test 04/30/2025 04/30/2024, 04/30/2024 COVID-19 Vaccine ( season) 2025 12/11/2021, 01/31/2021, 01/03/2021 Influenza Vaccine (#1) 2025 , 07/04/2023, 06/20/2020, [...] * Urine Albumin Creatinine Ratio (04/30/2024) Pathologist [facility] Urine Albumin Creatinine Ratio abstracted [facility] Provider HEALTH MAINTENANCE Final Result * Annual BMP Blood Test (04/30/2024) Pathologist [facility] Annual BMP Blood Test abstracted Result [facility] Provider HEALTH MAINTENANCE Final Result * (ABNORMAL) Hemoglobin A1c (04/30/2024) [facility] Hemoglobin A1C 8.5(A) <=6.5 % Blood Venous blood specimen / Unknown Result [facility] Provider MD LAB BLOOD ORDERABLES Kathryn l Result * Diabetes Foot Exam (11/04/2023) Pathologist [facility] Diabetes: Annual Foot Exam abstracted [facility] Provider HEALTH MAINTENANCE Final Result * (ABNORMAL) Lipid panel (11/04/2023) [facility] LDL/HDL Ratio 4 Triglycerides 298(A) 0 - 150 mg/dL Cholesterol 153 0 - 200 mg/dL HDL 41 >=40 mg/dL LDL Cholesterol 53 0 - 100 mg/dL Blood Venous blood specimen / Unknown Historical Provider LAB BLOOD ORDERABLES Kathryn l Result * Colonoscopy (10/19/2019) Colonoscopy no interpretation , abstracted Anatomical Region Laterality Modality Other Historical Provider HEALTH MAINTENANCE Final Result * Hepatitis C Screening (07/17/2018) Pathologist [facility] Hepatitis C Screening abstracted Historical Provider HEALTH MAINTENANCE Final Result from Last 3 Months or Most Recently Relevant to Health Maintenance Insurance [place] - [place] [facility] [employer] [employer]
== END 2025-06-10 13:05 | disposition home or self-care (01) ==
LOC: HO.HMCFM 11:05
PROVIDERS: PCP Family Medicine; Visit Provider Family Medicine
DX: E11.9 Type 2 diabetes mellitus without complications (principal); T18.108A Unspecified foreign body in esophagus causing other injury, initial encounter; E04.1 Nontoxic single thyroid nodule; R91.1 Solitary pulmonary nodule

== ENCOUNTER → 2025-06-10 11:04 | Outpatient (BNVA) | payer OTHER, SELFPAY | PROVIDERS: PCP Family Medicine; Visit Provider Family Medicine | DX: T18.128A Food in esophagus causing other injury, initial encounter (principal); E04.1 Nontoxic single thyroid nodule; R91.1 Solitary pulmonary nodule; E11.9 Type 2 diabetes mellitus without complications; Z79.84 Long term (current) use of oral hypoglycemic drugs; W44.F3XA Food entering into or through a natural orifice, initial encounter; Y93.9 Activity, unspecified; Y92.9 Unspecified place or not applicable; Y99.9 Unspecified external cause status | CPT/HCPCS: 99212 ==

== ENCOUNTER 2025-07-13 14:22 | Outpatient (AMB) | payer OTHER, SELFPAY ==
--- NOTE | 2025-07-13 14:27 | MHC.PC.OV ---
Vital Signs 07/13/25 14:32 Height 5 ft 1 in Weight 132 lb 2 oz BMI 25.0 BP 120/72 Blood Pressure Location Rt brachial Position Sitting Respiration 14 Pulse 94 Pulse Source Pulse Oximeter Temp 97.6 F Temp Source Temporal Artery Scan Pulse Oximetry (%) 94 Oxygen Delivery Method Room Air Intake Visit Reasons: f/u diabetes, HTN Intake Note: Pee presents in the office today to follow up on his diabetes and hypertension. 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 Name: [id number] Parbat Allergies No Known Allergies Allergy (Verified 07/13/25 14:31) Medication List - Last Reconciled 07/13/25 by Burke Gipson MD clobetasol 0.05% topical BID PRN cyanocobalamin (vitamin B-12) (Vitamin B-12) 1,000 mcg PO DAILY docusate sodium 100 mg PO BID PRN empagliflozin (Jardiance) 25 mg PO DAILY 90 days gabapentin 100 mg PO BID glipizide ER 10 mg PO BID lisinopril 5 mg PO DAILY metformin 1,000 mg PO BID omega [id number]-fish oil 60-90-500 mg 1 cap PO DAILY omeprazole 20 mg PO DAILY sertraline 50 mg PO DAILY simvastatin 20 mg PO BEDTIME Tobacco use date assessed: 07/13/25 Dental Screening Dental Screen Date: 07/13/25 Did you have a dental visit in the last 12 months?: No Did you have a dental problem in the last 6 months where you did not have access to dental care?: No Was dental information given to patient?: Patient declined HPI f/u diabetes, HTN HPI Details 74 y/o male presents to f/u diabetes, HTN. BP today 120/72, 94p. He is on lisinopril 5mg daily. A1c last visit had been high. Had sent a script for Jardiance. He notes he has been taking this. A1c today 07/13/25 8.4% - much improved from prior. [facility] Social History (Updated 07/13/25 @ 14:32 by Katiuska Little [facility] [address]) Housing: Apartment Alcohol intake: never Patient Tobacco Use Status: Never used Tobacco e-Cigarette/Vaping Use: Never Used Second Hand Smoke Exposure: No Use of substances other than those prescribed or required for medical reasons: No service: No Current occupational status: unemployed Cognitive needs: No Hearing needs: No Vision needs: No Questionnaire Thrive Questionnaire Date Thrive assessed: 04/08/25 BLACK-7 AMB Questionnaire BLACK-7 Date BLACK - 7 assessed: 04/08/25 Source: Developed by Drs. Jairon Brooks, Ana Bolanos, Joe Bradley and colleagues, with an educational caroline from [employer]. Review of Systems Const Denies chills, Denies fatigue, Denies fever(s), Denies headache(s) and Denies weakness ENT Denies dizziness and Denies headache(s) Card Denies dyspnea Resp Denies cough, Denies dyspnea, Denies wheezing and Denies other (shortness of breath) Musc Denies numbness and Denies tingling Neuro Denies dizziness, Denies headache(s), Denies numbness, Denies tingling and Denies weakness Psych Denies anxiety and Denies depression Endo Denies fatigue Aller/Immun Denies wheezing Physical exam (Primary Care) Vital Signs: Last Vital Signs Temp 97.6 F 07/13/25 14:32 Pulse 94 07/13/25 14:32 Resp 14 07/13/25 14:32 BP 120/72 07/13/25 14:32 Pulse Ox 94 07/13/25 14:32 Oxygen Delivery Method Room Air 07/13/25 14:32 BMI result Body Mass Index 25.0 Tobacco/Smoking Status: Tobacco use Status Tobacco use date assessed 07/13/25 07/13/25 14:36 Patient Tobacco Use Status Never used Tobacco 07/13/25 14:32 e-Cigarette/Vaping Use Never Used 07/13/25 14:32 Thrive Assessment: Date of Thrive Assessment Date Thrive assessed 04/08/25 07/13/25 14:28 Const General: well developed; No acute distress Nutritional Appearance: well nourished Orientation/consciousness: patient oriented x3 HENMT Head: Yes normocephalic and Yes atraumatic Eyes General: appearance normal, both eyes and all related structures Pupils: Equal, round and reactive pupils present EOM: EOMs intact bilaterally Resp Effort & Inspection: normal respiratory effort Neuro General: patient oriented x3 and gait normal Cranial nerves: Yes Equal, round and reactive pupils present Psych Affect: normal affect Results AMB Hemoglobin A1c AMB Hemoglobin A1c 8.4 % Last Edit by Katiuska Little CMA on 07/13/25 14:47 Coding Level of Care Code Est Pt Level 4 (46459) Diagnoses Diabetes E11.9 Hypertension I10 Assessment & Plan Assessment & Plan (1) Diabetes: Code(s): E11.9 - Type 2 diabetes mellitus without complications Category: Medical Plan: A1c has improved from 10.6% to 8.4% with addition of Jardiance. Goal is less than 7.0% Will increase metformin from 1000 mg b.i.d. to 850 mg t.i.d. Continue glipizide as prescribed Encouraged a diet lower in saturated fats and cholesterol, exercise and weight loss (2) Hypertension: Code(s): I10 - Essential (primary) hypertension Category: Medical Plan: Blood pressure is controlled. Goal is less than 140/90 Continue current medication Orders: Orders Comprehensive Davis. Panel Fast Today Z00.00 - Encounter for general adult medical examination without abnormal findings Microalbumin, Random (w Creat) Today I10 - Essential (primary) hypertension Prostate Specific Antigen Scr Today Z12.5 - Encounter for screening for malignant neoplasm of prostate TSH reflex Free T4 Today Z00.00 - Encounter for general adult medical examination without abnormal findings UA CC w/rflx Micro + Cult Today Z00.00 - Encounter for general adult medical examination without abnormal findings AMB Hemoglobin A1c Today E11.40 - Type 2 diabetes mellitus with diabetic neuropathy, unspecified, E11.9 - Type 2 diabetes mellitus without complications Complete Blood Count Auto Diff Today Z00.00 - Encounter for general adult medical examination without abnormal findings Lipid Panel Today Z00.00 - Encounter for general adult medical examination without abnormal findings Medications: Changed From metformin 1,000 mg PO BID 60 tabs 0RF To metformin 850 mg PO TIDWMEAL 270 tabs 3RF 90 days
[2025-07-13 14:32] VITALS: BP 120/72; PULSE 94; RESP 14; TEMP 36.4; O2SAT 94; BMI 25.0
--- OUTSIDE RECORDS SUMMARY | 2025-07-13 18:07 | XMS_ITS | Clinical Summary ---
Author Organization Patient Business Ser 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 wit h neurological manifestations ([facility] [place], [facility] [place]) 06/10/2017 GERD (gastroesophageal reflux disease) 7 Hypercholesteremia 06/10/2017 Immunizations Immunization Administration Dates Next Due Hepatitis B Pediatric [...] mellitus type 2, co ntrolled, with complications ([facility]/HCC V24, [facility]/HCC V28) DX:Diabetes mellitus type 2, controlled, with complications ([facility]) Disorder of thyroid DX:Disorder of [...] * Urine Albumin Creatinine Ratio (04/30/2024) Pathologist [facility] Urine Albumin Creatinine Ratio abstracted [facility] Provider HEALTH MAINTENANCE Final Result * Annual BMP Blood Test (04/30/2024) Pathologist [facility] Annual BMP Blood Test abstracted Result [facility] Provider HEALTH MAINTENANCE Final Result * (ABNORMAL) Hemoglobin A1c (04/30/2024) [facility] Hemoglobin A1C 8.5(A) <=6.5 % Blood Venous blood specimen / Unknown Result [facility] Provider MD LAB BLOOD ORDERABLES Kathryn l Result * Diabetes Foot Exam (11/04/2023) Pathologist [facility] Diabetes: Annual Foot Exam abstracted [facility] Provider HEALTH MAINTENANCE Final Result * (ABNORMAL) Lipid panel (11/04/2023) [facility] LDL/HDL Ratio 4 Triglycerides 298(A) 0 [...] Result * Hepatitis C Screening (07/17/2018) Pathologist [facility] Hepatitis C Screening abstracted Historical Provider HEALTH MAINTENANCE Final Result from Last 3 Months or Most Recently Relevant to Health Maintenance Insurance [place] - [place] [facility] [facility] [employer]
== END 2025-07-13 15:01 | disposition home or self-care (01) ==
LOC: HO.HMCFM 14:22
PROVIDERS: PCP Family Medicine; Visit Provider Family Medicine
DX: E11.40 Type 2 diabetes mellitus with diabetic neuropathy, unspecified (principal); I10 Essential (primary) hypertension

== ENCOUNTER → 2025-07-13 14:22 | Outpatient (BNVA) | payer OTHER, SELFPAY | PROVIDERS: PCP Family Medicine; Visit Provider Family Medicine | DX: E11.9 Type 2 diabetes mellitus without complications (principal); I10 Essential (primary) hypertension | CPT/HCPCS: 83036; 99212 ==